=== PATIENT | female | born 2005 | race African-American/Black ===

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

== ENCOUNTER 2025-10-01 16:00 | Day surgery (SDC) | payer OTHER ==
[2025-10-01 17:16] VITALS: BMI 35.4
== END 2025-10-01 18:50 | disposition home or self-care (01) ==
LOC: CSHLD/OP 16:00
PROVIDERS: ATTEND Family Medicine
DX: O46.92 Antepartum hemorrhage, unspecified, second trimester (principal); O98.812 Other maternal infectious and parasitic diseases complicating pregnancy, second trimester; Z3A.26 26 weeks gestation of pregnancy; Z67.10 Type A blood, Rh positive; Z88.0 Allergy status to penicillin
CPT/HCPCS: 76815; 99283